=== PATIENT | male | born 1970 | race American Indian/Alaskan Native ===

== ENCOUNTER 2020-02-10 11:45 | Emergency (ER) | payer BC ==
[2020-02-10] MEDS ORDERED: ACETAMINOPHEN 325 MG TAB PO ONE (11:57)
--- NOTE | 2020-02-10 13:25 | Emergency Department Report ---
ED General Adult HPI - General Chief complaint: Sore Throat Stated complaint: NOT FEELING GOOD Time Seen by Provider: 02/10/20 11:57 Source: patient Mode of arrival: Ambulatory Limitations: No Limitations - History of Present Illness Initial comments: 49-year-old -[place] male patient complains of sore throat and cough x2 weeks. He denies any past medical history. He rates his throat pain as a 7/10 in severity and states it worsens with swallowing. He denies any hemoptysis, chest pain, loss of taste/smell, abdominal pain, nausea/vomiting/diarrhea, rash, or fever. He states he does have body aches and chills. Severity scale (0 -10): 0 - Related Data Previous Rx's Medication Instructions Recorded Last Taken Type Amoxicillin [Trimox CAP] 1,000 mg PO TID 10 Days #60 capsule 02/10/20 Unknown Rx Azithromycin [Zithromax TAB] 250 mg PO QDAY 4 Days #4 tablet 02/10/20 Unknown Rx Allergies Allergy/AdvReac Type Severity Reaction Status Date / Time No Known Allergies Allergy Unverified 02/10/20 11:52 ED Review of Systems ROS: Stated complaint: NOT FEELING GOOD Other details as noted in HPI Constitutional: chills, malaise. denies: diaphoresis, fever ENT: throat pain. denies: ear pain Respiratory: cough. denies: shortness of breath Cardiovascular: denies: chest pain Gastrointestinal: denies: abdominal pain, nausea, diarrhea Skin: denies: rash, lesions, change in color Neurological: denies: headache Hematological/Lymphatic: denies: swollen glands ED Past Medical Hx - Past Medical History Previous Medical History?: No - Surgical History Past Surgical History?: No - Social History Smoking Status: Never Smoker Substance Use Type: None - Medications Home Medications: Home Medications Medication Instructions Recorded Confirmed Last Taken Type Amoxicillin [Trimox CAP] 1,000 mg PO TID 10 Days #60 capsule 02/10/20 Unknown Rx Azithromycin [Zithromax TAB] 250 mg PO QDAY 4 Days #4 tablet 02/10/20 Unknown Rx ED Physical Exam - General Limitations: No Limitations General appearance: alert, in no apparent distress - Head Head exam: Present: atraumatic, normocephalic - Eye Eye exam: Present: normal appearance. Absent: scleral icterus - Expanded ENT Exam Expanded Mouth exam: Absent: drooling, trismus, muffled voice Throat exam: Positive: tonsillar erythema, other (uvula is midline). Negative: tonsillar exudate, R peritonsillar mass, L peritonsillar mass - Respiratory Respiratory exam: Present: rhonchi. Absent: respiratory distress, wheezes, chest wall tenderness - Cardiovascular Cardiovascular Exam: Present: regular rate, normal rhythm - GI/Abdominal GI/Abdominal exam: Absent: tenderness - Back Exam Back exam: Present: full ROM - Neurological Exam Neurological exam: Present: alert, oriented X3, normal gait - Psychiatric Psychiatric exam: Present: normal affect, normal mood - Skin Skin exam: Present: warm, dry, intact, normal color. Absent: rash, cyanosis, diaphoretic, ecchymosis ED Course Vital Signs 02/10/20 02/10/20 11:53 15:35 Temperature 100.2 F H 99.0 F Pulse Rate 107 H 88 Respiratory 18 20 Rate Blood Pressure 138/85 141/85 O2 Sat by Pulse 94 96 Oximetry ED Medical Decision Making - Lab Data Result diagrams: 02/10/20 14:38 02/10/20 14:38 - Radiology Data Radiology results: report reviewed Lungs/Pleura: Left basilar disease is worrisome for pneumonia. Very minimal disease is demonstrated in the right base. IMPRESSION: 1. Left (and minimal right) basilar disease, suggesting pneumonia. - Medical Decision Making 49-year-old -[place] male patient complains of sore throat and cough x2 weeks. He denies any past medical history. He rates his throat pain as a 7/10 in severity and states it worsens with swallowing. He denies any hemoptysis, chest pain, loss of taste/smell, abdominal pain, nausea/vomiting/diarrhea, rash, or fever. He states he does have body aches and chills. Strep is negative. X-ray shows pneumonia. Patient presented mildly tachycardic at 107 with a low-grade fever 100.2. Patient given Tylenol and fever is now resolved and heart rate is normal. He is satting at 96% on room air. CBC shows normal white count. He is well-appearing and he is stable for discharge home. Patient given first dose of amoxicillin azithromycin here in ED. Recommend outpatient COVID-19 testing, patient provided with testing facility list. Discussed self quarantine until results are back. Also discussed signs and symptoms that should prompt immediate return to the emergency department in detail with patient who verbalized understanding. Patient is to follow-up with his primary care doctor in 3 days. Critical care attestation.: If time is entered above; I have spent that time in minutes in the direct care of this critically ill patient, excluding procedure time. ED Disposition Clinical Impression: Bilateral pneumonia Qualifiers: Pneumonia type: due to unspecified organism Lung location: unspecified part of lung Qualified Code(s): J18.9 - Pneumonia, unspecified organism Disposition: DC- TO HOME OR SELFCARE Is pt being admited?: No Condition: Stable Instructions: Bacterial Pneumonia (ED), Community-Acquired Pneumonia, Adult, [id number], COVID-19, Prevent the Spread of COVID-19 if You Are Sick - [facility] Prescriptions: Amoxicillin [Trimox CAP] 1,000 mg PO TID 10 Days #60 capsule Azithromycin [Zithromax TAB] 250 mg PO QDAY 4 Days #4 tablet Referrals: [facility] [place] [Provider Group] - 2-3 Days
--- NOTE | 2020-02-10 14:26 | XRay Report ---
CHEST PA AND LATERAL VIEWS INDICATION: cough. COMPARISON: None FINDINGS: Support devices: None Heart: Normal Lungs/Pleura: Left basilar disease is worrisome for pneumonia. Very minimal disease is demonstrated i n the right base. IMPRESSION: 1. Left (and minimal right) basilar disease, suggesting pneumonia. Signer Name: Gregg Cavanaugh MD Signed: 02/10/2020 2:21 PM Workstation Name: [id number]
[2020-02-10 15:15] LABS: Basophils % (Auto) 0.4 % (0.0-1.8); Hematocrit 41.5 % (35.5-45.6); Hemoglobin 14.6 gm/dl (11.8-15.2); Lymphocytes # (Auto) 1.8 K/mm3 (1.2-5.4); Lymphocytes % (Auto) 27.6 % (13.4-35.0); Mean Corpuscular HGB Conc 35 % (32-34); Mean Corpuscular Volume 92 fl (84-94); Monocytes # (Auto) 0.5 K/mm3 (0.0-0.8); Monocytes % (Auto) 8.5 % (0.0-7.3); Platelet Count 187 K/mm3 (140-440); Red Blood Count 4.51 M/mm3 (3.65-5.03); Red Cell Distribution Width 12.7 % (13.2-15.2)
[2020-02-10 15:18] LABS: Alanine Aminotransferase 66 units/L (7-56); Albumin 3.9 g/dL (3.9-5); BUN/Creatinine Ratio 13; Blood Urea Nitrogen 13 mg/dL (9-20); Calcium 8.7 mg/dL (8.4-10.2); Hemolysis Index 8
[2020-02-10 15:35] VITALS: BP 141/85
[2020-02-10] MEDS ORDERED: AMOXICILLIN 500 MG CAP PO ONE (15:54)
[2020-02-10] MEDS ORDERED: AZITHROMYCIN 250 MG TAB PO ONE (15:54)
[2020-02-10] MEDS ORDERED: AZITHROMYCIN 250 MG TAB PO STA (16:03)
== END 2020-02-10 16:37 | disposition home or self-care (01) ==
LOC: ED 11:45
DX: J15.9 Unspecified bacterial pneumonia (principal); Z79.2 Long term (current) use of antibiotics
CPT/HCPCS: 36415; 71046; 80053; 85025; 87116; 87430